=== PATIENT | male | born 1990 | race Caucasian/White ===

== ENCOUNTER 2024-11-20 09:38 | Outpatient (AMB) | payer OTHER, SELFPAY ==
--- NOTE | 2024-11-20 09:39 | MHC.OFFVIS ---
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 He reports that this pain started about 7 years ago he reported initially pain was very mild. However lately it became more and more severe. He reports that because of his pain he can not sleep normally can not do activities of daily living, he can take care of himself, but he can not function normally. He reports that prolonged sitting aggravates his pain. He reports that if he sits for long period of time he starts to feel pulsing and burning sensation in his back. He reports his pain is 8/10 today. 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 He tried ibuprofen to help his pain and it did not help a lot. He was sent for physical therapy and he completed 8 sessions of physical therapy and he performs home exercise program. He reports that home exercise program help his pain but very little. He had an x-ray of the lumbar spine results of which are not available for me. His past medical history significant for depression, he states that now he is not depressed and not taking any medications. Surgical history appendectomy in 2013, he denies smoking cigarettes admits drinking alcohol once a month denies coffee and caffeinated beverages and denies recreational drugs. Review of Systems Const Reports no additional complaints ENT Reports Normal hearing present Card Reports no additional complaints Resp Reports no additional complaints GI Reports no additional complaints Reports no additional complaints Musc Reports as per HPI Neuro Reports no additional complaints, Reports Normal hearing present, Denies Abnormal speech present, Denies confusion and Denies Sensory deficit (Neuro) Psych Reports as per HPI and Denies confusion Endo Reports no additional complaints Cameron/Lymph Reports no additional complaints Physical Exam Vital Signs: Last Vital Signs Pulse 73 11/20/24 09:41 Resp 16 11/20/24 09:41 BP 129/70 11/20/24 09:41 Pulse Ox 96 11/20/24 09:41 Oxygen Delivery Method Room Air 11/20/24 09:41 BMI result Body Mass Index 38.4 Const General: no acute distress; No confusion Nutritional Appearance: obese morbidly obese Orientation/consciousness: patient oriented x3 and No confusion Eyes General: appearance normal, both eyes and all related structures Pupils: Equal, round and reactive pupils present EOM: EOMs intact bilaterally Neck Neck: Yes full ROM Chest Chest palpation & inspection: normal inspection of the chest Resp Effort & Inspection: normal respiratory effort, able to speak in complete sentences, normal respiratory pattern, no audible wheezes and no cough Cardio Jugular venous distension: no JVD GI Inspection: Yes normal to inspection Back/Spine/Pelvis Other: Able to stand on bilateral tiptoes and bilateral heels without difficulty. Flexing backwards about 10 degrees. Aggravate his pain. Flexing forward no more than 55 degrees also aggravate his pain. Loading test is positive bilaterally. SLR is negative bilaterally. Lasegue test is negative bilaterally. Magdiel test is negative bilaterally. Valsalva maneuver is negative for pain increase. Neuro General: patient oriented x3, gait normal and No confusion Cranial nerves: Yes CN's II-XII intact bilaterally, Yes Equal, round and reactive pupils present, Yes Normal hearing present and Yes Ability to bilaterally elevate shoulders present Speech: No Abnormal speech present Gait exam (Neuro): Normal gait present Motor exam (neuro): 5/5 motor strength present throughout Sensory Exam: No Sensory deficit (Neuro) Extrem General: No pedal edema Psych Speech and movement: Normal speech and movement present Affect: normal affect Attitude: cooperative Thought process: Normal thought process present Thought content: Normal thought content present Insight: Good insight present (Psych) Judgement: Good judgement present (Psych) Assessment & Plan Assessment & Plan (1) Spondylosis of lumbar region without myelopathy or radiculopathy: Code(s): M47.816 - Spondylosis without myelopathy or radiculopathy, lumbar region Category: Medical (2) Vertebrogenic low back pain: Code(s): M54.51 - Vertebrogenic low back pain Category: Medical (3) Chronic pain syndrome: Code(s): G89.4 - Chronic pain syndrome Category: Medical Plan With the history of pain aggravation flexing forward and prolonged sitting 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 He obviously has also spondylosis of the lumbar spine. He is also obese and that is significant load for his back. To evaluate what is more prominent in terms of his pain generators I would like to send this patient for the MRI of the lumbar spine. I will see this patient immediately after the MRI is ready to assess Modic type changes in his back. He was instructed to give me a call to schedule an appointment as soon as he will step out of the MRI machine. Orders: Orders MR lumbar spine wo con Today G89.4 - Chronic pain syndrome, M47.816 - Spondylosis without myelopathy or radiculopathy, lumbar region, M54.51 - Vertebrogenic low back pain Coding Level of Care Code New Pt Level 3 (90479) Diagnoses Spondylosis of lumbar region without myelopathy or radiculopathy M47.816 Vertebrogenic low back pain M54.51 Chronic pain syndrome G89.4
[2024-11-20 09:41] VITALS: BP 129/70; PULSE 73; RESP 16; O2SAT 96; BMI 38.4
== END 2024-11-20 09:56 | disposition home or self-care (01) ==
PROVIDERS: PCP Internal Medicine; Referring Provider Nurse Practitioner Primary Care; Visit Provider Anesthesiology
DX: M47.816 Spondylosis without myelopathy or radiculopathy, lumbar region (principal); M54.51 Vertebrogenic low back pain; G89.4 Chronic pain syndrome
CPT/HCPCS: 99203

== ENCOUNTER → 2024-11-20 09:38 | Outpatient (BNVA) | payer OTHER, SELFPAY | PROVIDERS: PCP Internal Medicine; Referring Provider Nurse Practitioner Primary Care; Visit Provider Anesthesiology | DX: M47.816 Spondylosis without myelopathy or radiculopathy, lumbar region (principal); M54.51 Vertebrogenic low back pain; G89.4 Chronic pain syndrome | CPT/HCPCS: 99202 ==

== ENCOUNTER 2024-12-11 11:30 | Outpatient (REF) | payer OTHER, SELFPAY ==
--- NOTE | ~2024-12-11 | MR_ITS ---
EXAM: MRI lumbar spine without contrast TECHNIQUE: Multiplanar multisequence imaging was performed through the lumbar spine without contrast. INDICATION: Chronic low back pain, no surgery, difficulty with standing and sitting for long periods of time, pain radiates into the groin and bilateral lower extremities, bilateral lower extremity weakness, numbness, and pain PRIOR: None FINDINGS: 5 non-rib bearing lumbar segments are assumed for numbering purposes. If level specific intervention is planned, correlate with an x-ray to ensure concordant numbering. Marrow and end-plates: Modic type II changes are present anteriorly at L1-2 and anterosuperiorly at L4. Chriss's note is present at superior T12. Alignment: Vertebral body height and alignment is preserved. Soft tissues: Paraspinal soft tissues and major vascular structures are unremarkable. Conus: The termination of conus medullaris is within normal limits at the level of mid L1. T12-L1: There is no disc bulge, herniation, spinal stenosis, or foraminal narrowing. L1-L2: There is minimal anterior disc bulge without herniation, spinal stenosis, or foraminal narrowing. L2-L3: There is no disc bulge, herniation, spinal stenosis, or foraminal narrowing. L3-L4: There is minimal broad-based disc bulge with minimal bilateral foraminal narrowing. There is trace fluid in the facet joints. L4-L5: There is subtle disc bulge without spinal stenosis. There is subtle left foraminal narrowing. There is no right foraminal narrowing. There is trace fluid in the right greater than left facet joints. L5-S1: There is disc desiccation, broad-based disc bulge, and central disc protrusion that flattens the thecal sac. There is no spinal stenosis there is subtle right subarticular zone narrowing. There is mild bilateral foraminal narrowing. MR/MR lumbar spine wo con IMPRESSION: L5-S1: Broad-based disc bulge, and central disc herniation results in subtle right subarticular zone narrowing. There is mild bilateral foraminal narrowing. Electronically signed by: Jamison Knox MD 12/11/2024 03:44 PM EDT
--- OUTSIDE RECORDS SUMMARY | 2024-12-11 12:50 | XMS_ITS | Clinical Summary ---
Author Organization [address] Address [address] [place] [phone] Phone Care Team Providers Care Gas Maker Helper Name Role Phone Catherine Ralph DO Primary Care Provider [phone] Allergies Active Allergy Reactions Criticality Noted Date Comments Pollen Extracts 03/10/2016 Medications cyclobenzaprine (FLEXERIL) 10 mg tablet Take 1 tablet (10 mg total) by mouth 2 (two) times a day if needed for muscle spasms for up to 10 days. 20 each 08/08/2024 Active Active Problems Problem Noted Date Diagnosed Date ADHD (attention deficit hyperactivity disorder) 01/19/2009 Seasonal allergies 01/19/2009 Depression 12/25/2008 Overview (08/03/2024): H/o inpatient ([facility]) for a week or two, at 15 yrs, for severe depression; as of 12/18, feeling well, not seeing a counselor. Encounters Date Type Department Care Team Description 11/03/2024 12:30 PM EDT Office Visit Internal Medicine - [address] [id number] Del Espinoza NP Chest pain, unspecified type (Primary Dx); Chronic bilateral low back pain with bilateral sciatica 11/03/2024 Telephone Internal Medicine - [address] [id number] Catherine Ralph DO Back Pain from Last 3 Months Immunizations Name Administration Dates Next Due DTP 03/06/1994, 2,1989,1989,1989 [id number] (Pentacel) 2mo to less than 5yo 07/01/1990 Hepatitis B Pediatric (Enger ix B; Recombivax HB) to less than 20 yo 04/05/2002,05/27/2000,04/14/2000 Influenza trivalent, with preservative (Fluzone; Afluria) 6mo and older 05/27/2006 MMR, measles mumps and rubel la Live (Priorix; M-M-R II) 12mo and older 09/03/1995,07/17/1991 OPV 09/03/1995, 4,07/17/1991,1989,1989 PPD Test 03/06/1994,07/01/1990 Td Tetanus diptheria (Tdvax) 7yo and older 04/14/2000 Varicella live (Varivax) 12m o and older 07/12/1992 Surgical History Surgery Date Site/Laterality Comments APPENDECTOMY 07/12/12 PROCEDURE: HISTORICAL APPENDECTOMY Family History Medical History Relation Name Comments Diabetes Aunt 1 Hypertension Aunt 2 Relation Name Status Comments Aunt 1 Aunt 2 Aunt 3 Social History Tobacco Use Types Packs/Day Years Used Date Smoking Tobacco: Never Tobacco Cessation:Counseling Given: Not Answered Alcohol Use Standard Drinks/Week Comments Not Asked 0 (1 standard drink = 0.6 oz pur e alcohol) Sex and Gender Information Value Date Recorded Sex Assigned at Not on file Legal Sex Male 4:56 PM EST Gender Identity Not on file Sexual Orientation Not on file Obstetrics History Last Filed Vital Signs Vital Sign Reading Time Taken Comments Blood Pressure 104/58 11/03/2024 12:46 PM EDT Pulse 75 11/03/2024 12:46 PM EDT Temperature - - Respiratory Rate - - Oxygen Saturation - - Inhaled Oxygen Concentration - - Weight 106 kg (233 lb 14.4 oz) 11/03/2024 12:46 PM EDT Height 165.1 cm (5' 5 ) 11/03/2024 12:46 PM EDT Body Mass Index 38.92 11/03/2024 12:46 PM EDT Plan of Treatment Health Maintenance Due Date Last Done Comments DTaP,Tdap,and Td Vaccines (7 - Td or Tdap) 04/14/2010 04/14/2000, 03/06/1994, 07/17/1991, Additional history exists COVID-19 Vaccine ( season) 2024 Cholesterol Screening (Lipid Panel) 07/28/2024 03/10/2016 Depression Screening 07/28/2024 HIV Screening 07/28/2024 Hepatitis C Screening 07/28/2024 Social Influencers of Health Screening 07/28/2024 Influenza Vaccine (Season Ended) 2025 05/27/2006 HIB Vaccines Aged Out 07/01/1990 No longer eligi ble based on patient's age to complete this topic Varicella Vaccines Aged Out 07/12/1992 No longer eligible based on patient's age to complete this topic IPV Vaccines Completed 09/03/1995, 02/10, 07/17/1991, Additional history exists MMR Vaccines Completed 09/03/1995, 07/17/1991 Hepatitis B Vaccines Completed 04/05/2002, 05/27/2000, 04/14/2000 HPV Vaccines Aged Out No longer eligi ble based on patient's age to complete this topic Hepatitis A Vaccines Aged Out No long er eligible based on patient's age to complete this topic Meningococcal ACWY Vaccine Aged Out N o longer eligible based on patient's age to complete this topic Meningococcal B Vaccine Aged Out No l onger eligible based on patient's age to complete this topic Pneumococcal Vaccine: Pediatrics (0 to 5 Years) and At-Risk Patients (6 to 64 Years) Aged Out No longer eligible based on patient's age to complete this topic RSV Immunization Patients Under 20 months Aged Out No longer eligible based on patient's age to complete this topic Goals Goal Patient Goal Type Associated Problems Recent Progress Patient-Stated? Author LTG - 8 visits General No Sangeeta Mesa, PT Note: Patient reports subjective decrease in low back pain Patient is able to achieve 60 degrees of lumbar flexion Equal PSIS bilaterally Slight trigger point to bilateral QL Patient is able to achieve 4+/5 TA strength Patient is independent and compliant with HEP Procedures Procedure Name Priority Date/Time Associated Diagnosis Comments ECG 12-LEAD Routine 11/06/2024 8:11 AM EDT Chronic bilateral low back pain with bilateral sciatica Chest pain, unspecified type LIPID PANEL Routine 03/10/2016 from Last 3 Months or Most Recently Relevant to Health Maintenance Results * ECG 12 lead (11/06/2024 8:11 AM EDT) Narrative Del Espinoza NP - 11/10/2024 7:11 AM EDT EKG reviewed by Del Del Espinoza NP ECG ORDERABLES Final Result * Lipid panel (03/10/2016) LDL/HDL Ratio 4 Triglycerides 140 mg/dL Cholesterol 162 mg/dL HDL 41 mg/dL LDL Cholesterol 93 mg/dL Blood Venous blood specimen / Unknown Historical Provider LAB BLOOD ORDERABLES Fadia l Result from Last 3 Months or Most Recently Relevant to Health Maintenance Insurance [facility] [phone] Care Teams Gas Maker Helper Relationship Specialty Start Date End Date Catherine Ralph DO [address] [place] [address] PCP - General Internal Medicine 07/28/24
== END 2024-12-11 11:31 | disposition home or self-care (01) ==
LOC: HO.MRI 11:30
PROVIDERS: Visit Provider Anesthesiology
DX: M54.51 Vertebrogenic low back pain (principal); M47.816 Spondylosis without myelopathy or radiculopathy, lumbar region; G89.4 Chronic pain syndrome
CPT/HCPCS: 72148

== ENCOUNTER → 2024-12-11 11:42 | Outpatient (BNV) | payer OTHER, SELFPAY | PROVIDERS: Visit Provider Radiology Diagnostic Radiology | DX: M51.360 Other intervertebral disc degeneration, lumbar region with discogenic back pain only (principal) | CPT/HCPCS: 72148 ==